=== PATIENT | female | born 1960 | race Caucasian/White ===

== ENCOUNTER 2018-02-02 08:10 | Outpatient (CLI) | payer MEDICAID ==
[2018-02-02] VITALS (7 sets, daily range): BP systolic 94–120; BP diastolic 44–63
[~2018-02-02] VITALS: Ht 165.1 cm; Wt 113.6 kg
[2018-02-02] MEDS ORDERED: LOVA20TA2 PO (09:09)
[2018-02-02] MEDS ORDERED: VITA-268 PO (09:10)
[2018-02-02] MEDS ORDERED: CALC1TAB PO (09:10)
[2018-02-02] MEDS ORDERED: LEVO112T5 PO (09:10)
[2018-02-02] MEDS ORDERED: TRAM50TA2 PO (09:10)
[2018-02-02] MEDS ORDERED: FLAX1CAP4 PO (09:10)
[2018-02-02] MEDS ORDERED: PREG300C PO (09:10)
[2018-02-02] MEDS ORDERED: MULT-38 PO (09:10)
[2018-02-02] MEDS ORDERED: BIOT5TAB PO (09:10)
[2018-02-02] MEDS ORDERED: FAMO20TA8 PO (09:10)
[2018-02-02] MEDS ORDERED: ALLO300T2 PO (09:10)
[2018-02-02] MEDS ORDERED: LISI-604 PO (09:10)
[2018-02-02] MEDS ORDERED: CITA40TA22 PO (09:10)
[2018-02-02] MEDS ORDERED: CHOL10002 PO (09:10)
[2018-02-02] MEDS ORDERED: ASPI-974 PO (09:10)
[2018-02-02] MEDS ORDERED: CAFFEINE CITRATE 60 MG/3 ML injection vial IV ONE ×2 (09:57→10:05)
[2018-02-02] MEDS ORDERED: regadenoson 0.4mg/5ml syringe IV ONE ×2 (09:57→10:05)
[2018-02-02] MEDS ORDERED: nitroGLYCERIN 0.4mg SUBLingual tab SL PRN (10:05)
[2018-02-02] MEDS ORDERED: metoprolol tartrate 1mg/ml inj IV PRN (10:05)
== END 2018-02-02 23:59 | disposition home or self-care (01) ==
LOC: RAD 08:10
PROVIDERS: ATTEND Internal Medicine Cardiovascular Disease
DX: R94.31 Abnormal electrocardiogram [ECG] [EKG] (principal)
CPT/HCPCS: 78452; 93017; A9500

== ENCOUNTER 2020-04-13 10:21 | Day surgery (SDC) | payer MEDICARE ==
[2020-04-10 14:27] LABS: BASOPHILS % (AUTO) 0.8 % (0-1); EOSINOPHILS # (AUTO) 0.1 X10'3 (0-0.9); EOSINOPHILS % (AUTO) 2.8 % (0-6); LYMPHOCYTES # (AUTO) 1.5 X10'3 (1.1-4.8); LYMPHOCYTES % (AUTO) 30.8 % (21-51); MEAN CORPUSCULAR HEMOGLOBIN 30.7 PG (27.0-31.0); MEAN CORPUSCULAR HGB CONC 32.5 g/dL (33.0-36.5); MEAN CORPUSCULAR VOLUME 94.6 FL (78-98); MEAN PLATELET VOLUME 10.1 FL (7.4-10.4); MONOCYTES # (AUTO) 0.5 X10'3 (0-0.9); MONOCYTES % (AUTO) 9.6 % (2-12); NEUTROPHILS # (AUTO) 2.7 X10'3 (1.8-7.7); PRE OP HEMATOCRIT 40.1 % (35.0-45.0); PRE OP PLATELET COUNT 287 X10'3 (140-440); RED BLOOD COUNT 4.23 X10'6 (4.20-5.60); RED CELL DISTRIBUTION WIDTH 13.6 % (11.5-14.5)
[2020-04-10 14:41] LABS: ALBUMIN 3.4 G/DL (3.4-5.0); ALKALINE PHOSPHATASE 94 IU/L (46-116); BLOOD UREA NITROGEN 10 MG/DL (7-18); BUN/CREATININE RATIO 13.2 (6.6-38.0); CALCIUM 8.7 MG/DL (8.5-10.1); CHLORIDE 105 MMOL/L (99-107); CREATININE 0.76 MG/DL (0.40-0.90); PRE OP ALT 17 U/L (30-65); PRE OP ANION GAP 5 (8-16); PRE OP AST 21 U/L (10-37); PRE OP BILIRUB, TOTAL 0.5 MG/DL (0.0-1.0); PRE OP GLUCOSE 116 MG/DL (70-104); PRE OP POTASSIUM 3.5 MMOL/L (3.4-5.1); PRE OP SODIUM 138 MMOL/L (135-145); TOTAL CARBON DIOXIDE 28.3 MMOL/L (24-32); TOTAL PROTEIN 6.8 G/DL (6.4-8.2); eGFR 77 ML/MIN
[2020-04-13] VITALS (8 sets, daily range): BP systolic 119–139; BP diastolic 65–75
[~2020-04-13] VITALS: Ht 165.1 cm; Wt 109.1 kg
[~2020-04-13 10:21] MED LIST: ALLO300T2 PO; BUSP10TA11 PO; CITA40TA22 PO; FAMO20TA8 PO; LEVO112T5 PO; LISI-604 PO; LOVA20TA2 PO; PREG300C PO; cefazolin/dext.iso 2gm/50ml 50 ML IV ONE; famotidine 20mg tablet PO ONE; ringers solution, lacted 1,000 ML IV SCH; vancomycin 1,500 MG in NS 300ml IV soln IV ONE
[2020-04-13] MEDS ORDERED: HYDROcodone/acetaminophen 10/325mg tab PO ONE ×2 (11:10→13:50)
[2020-04-13] MEDS ORDERED: HYDR-4353 PO (11:29)
[2020-04-13] MEDS ORDERED: BUPIVAcaine/PF 2.5 mg/ml (0.25%) 30ml vial ONE (11:36)
[2020-04-13] MEDS ORDERED: bacitracin 15gm ointment TP ONE (11:36)
[2020-04-13] MEDS ORDERED: fentaNYL/PF 50MCG/1 ML 2ML syringe ONE (12:44)
[2020-04-13] MEDS ORDERED: propofol inj 20 ML IV ONE (12:44)
[2020-04-13] MEDS ORDERED: ondansetron/PF 4mg/2ml inj IV PRN (12:45)
[2020-04-13] MEDS ORDERED: ringers solution, lacted 1,000 ML IV SCH (12:45)
[2020-04-13] MEDS ORDERED: proCHLORperazine 10 MG/2 ml inj IV PRN (12:45)
[2020-04-13] MEDS ORDERED: meperidine/PF 25mg/ml syringe IV PRN ×3 (12:45)
[2020-04-13] MEDS ORDERED: morphine 4 MG/ML inj SYRINge IV PRN (12:45)
[2020-04-13] MEDS ORDERED: morphine 2 MG/ML inj. syringe IV PRN (12:45)
[2020-04-13] MEDS ORDERED: povidone-iodine 10% topical ointment 28.4gm TP ONE (13:12)
--- NOTE | 2020-04-13 13:23 | NUR ---
ARRIVED IN PACU VIA GURNEY FROM OR WITH DR CARUSO IN ATTENDANCE. REPORT RECIEVED. PT AWAKE. VS STABLE. TOES WARM AND PINK. RLE ELEVATED
--- NOTE | 2020-04-13 14:43 | NUR ---
SURGICAL BOOT PLACED BY OR. DRESSED WITH LITTLE HELP. PWB TO W/C. TO CAR VIA W/C ASSISTED BY NURSE. OR CLEANED EXTERNAL FIXATOR AND GAVE TO PT BEFORE DISCHARGE
== END 2020-04-13 14:43 | disposition home or self-care (01) ==
LOC: PAS 10:21
PROVIDERS: ATTEND Podiatrist Foot & Ankle Surgery
DX: T84.69XA Infection and inflammatory reaction due to internal fixation device of other site, initial encounter (principal); M19.221 Secondary osteoarthritis, right elbow; M19.071 Primary osteoarthritis, right ankle and foot; M19.072 Primary osteoarthritis, left ankle and foot; M17.12 Unilateral primary osteoarthritis, left knee; E11.40 Type 2 diabetes mellitus with diabetic neuropathy, unspecified; D64.9 Anemia, unspecified; F41.9 Anxiety disorder, unspecified; E03.9 Hypothyroidism, unspecified; G47.30 Sleep apnea, unspecified; F32.9 Major depressive disorder, single episode, unspecified; K21.9 Gastro-esophageal reflux disease without esophagitis; I10 Essential (primary) hypertension; E66.9 Obesity, unspecified; Z68.41 Body mass index [BMI] 40.0-44.9, adult; Z86.14 Personal history of Methicillin resistant Staphylococcus aureus infection; Z79.899 Other long term (current) drug therapy; Z90.49 Acquired absence of other specified parts of digestive tract; Z98.890 Other specified postprocedural states; Z88.8 Allergy status to other drugs, medicaments and biological substances; Y83.8 Other surgical procedures as the cause of abnormal reaction of the patient, or of later complication, without mention of misadventure at the time of the procedure; Y92.89 Other specified places as the place of occurrence of the external cause
CPT/HCPCS: 20694; 36415; 80053; 82948; 85025; 93005; A6223; J2175; J2704; J3010; J3370; J3490; J7040; L4360; A4618; A6449; A7000; J7120

== ENCOUNTER 2022-01-10 15:22 | Outpatient (CLI) | payer MEDICARE ==
[2022-01-10 11:03] LABS: BASOPHILS # (AUTO) 0.1 X10'3 (0-0.2); BASOPHILS % (AUTO) 1.1 % (0-1); EOSINOPHILS # (AUTO) 0.2 X10'3 (0-0.9); EOSINOPHILS % (AUTO) 3.3 % (0-6); LYMPHOCYTES # (AUTO) 1.5 X10'3 (1.1-4.8); MEAN CORPUSCULAR HEMOGLOBIN 28.1 PG (27.0-31.0); MEAN CORPUSCULAR HGB CONC 32.1 g/dL (33.0-36.5); MEAN CORPUSCULAR VOLUME 87.6 FL (78-98); MEAN PLATELET VOLUME 9.8 FL (7.4-10.4); MONOCYTES # (AUTO) 0.4 X10'3 (0-0.9); MONOCYTES % (AUTO) 8.8 % (2-12); NEUTROPHILS # (AUTO) 2.6 X10'3 (1.8-7.7); NEUTROPHILS % (AUTO) 54.8 % (42-75); PRE OP HEMATOCRIT 38.3 % (35.0-45.0); PRE OP HEMOGLOBIN 12.3 g/dL (12.0-16.0); PRE OP PLATELET COUNT 239 X10'3 (140-440); RED BLOOD COUNT 4.37 X10'6 (4.20-5.60); RED CELL DISTRIBUTION WIDTH 14.1 % (11.5-14.5)
[2022-01-10 11:14] LABS: ALBUMIN 3.3 G/DL (3.4-5.0); BLOOD UREA NITROGEN 10 MG/DL (7-18); CHLORIDE 107 MMOL/L (99-107)
[2022-01-10 11:28] LABS: ALKALINE PHOSPHATASE 134 IU/L (46-116); BUN/CREATININE RATIO 14.3 (6.6-38.0); CALCIUM 8.1 MG/DL (8.5-10.1); PRE OP ALT 23 U/L (30-65); PRE OP ANION GAP 9 (8-16); PRE OP AST 14 U/L (10-37); PRE OP BILIRUB, TOTAL 0.4 MG/DL (0.0-1.0); PRE OP GLUCOSE 154 MG/DL (70-104); PRE OP POTASSIUM 4.2 MMOL/L (3.4-5.1); PRE OP SODIUM 141 MMOL/L (135-145); TOTAL CARBON DIOXIDE 25.4 MMOL/L (24-32); TOTAL PROTEIN 6.6 G/DL (6.4-8.2); eGFR 85 ML/MIN
[~2022-01-10 15:22] MED LIST changes: +HYDR-4353 PO; -LISI-604 PO; +LISI5TAB22 PO; -cefazolin/dext.iso 2gm/50ml 50 ML IV ONE; -famotidine 20mg tablet PO ONE; -ringers solution, lacted 1,000 ML IV SCH; -vancomycin 1,500 MG in NS 300ml IV soln IV ONE
== END 2022-01-10 23:59 | disposition home or self-care (01) ==
LOC: LAB 15:22 → EDSTATUS 01-17 08:00
PROVIDERS: ATTEND Podiatrist Foot & Ankle Surgery
DX: Z01.812 Encounter for preprocedural laboratory examination (principal); M19.072 Primary osteoarthritis, left ankle and foot; M14.679 Charcot's joint, unspecified ankle and foot; M79.671 Pain in right foot; M25.472 Effusion, left ankle
CPT/HCPCS: 36415; 80053; 85025